=== PATIENT | female | born 1980 ===

== ENCOUNTER 2019-05-17 14:49 | Observation (INO) | payer MEDICAID ==
[2019-05-17] MEDS: Lactated Ringers 1,000 ML IV SCH ×2 (15:05→20:24)
[2019-05-17] MEDS ORDERED: Sodium Chloride 0.9% 10 ML Syringe FLUSH PRN (15:06)
--- NOTE | 2019-05-17 16:33 | US ---
EXAMINATION: OB Ltd 1 or More Fetus SEX: Female AGE: 39 years CLINICAL HISTORY: 39-year-old high risk, PREECLAMPTIC, "gravid" 3 para 1 female with ABDOMINAL PAIN. EDC 14 June 2019. INTERPRETATION: 1. Midline uterus enlarged with a clearly demonstrated single live ( heart rate 136 bpm) intrauterine gestation longitudinal lie and cephalic presentation. 2. Mature (calcifications) thin placenta located up over the fundus of the uterus clearly away from the internal cervical os. 3. Low normal volume amniotic fluid (RACHEL 8 cm). 4. Maximum biophysical profile score 8 of a possible 8 reflecting summation score 2 each for the sonographic parameters breathing movement, motion, tone and amniotic fluid volume (score 2 also reported for the clinical nonstress test). 5. measurements: BPD 8.8 cm (35 weeks 4 days). HC 32.35 cm (36 weeks 5 days). Before meals 30.92 cm (35 weeks). FL 6.7 cm (34 weeks 4 days. 6. Average ultrasound age (AUA) 35 weeks 4 days. Estimated weight 2569 g (5 lbs. 11 oz.). CONCLUSION: Single live 35 week 4 day, third trimester intrauterine gestation cephalic presentation. Fundal placenta. Biophysical profile score 10 of 10.
[2019-05-17] MEDS ORDERED: Calcium Carbonate 500 MG Tab.Chew PO ONE (16:39)
[2019-05-17] MEDS ORDERED: Acetaminophen 325 MG Tab PO PRN (18:12)
[2019-05-17] MEDS ORDERED: Betamethasone Acetate/Betamethasone Sod Phosphate 30 MG/5 ML MDV IM SCH (18:15)
[2019-05-17] MEDS ORDERED: hydrOXYzine HCl 25 MG Tab PO PRN (18:41)
[2019-05-17] MEDS: Calcium Carbonate 500 MG Tab.Chew PO PRN (19:57)
--- NOTE | 2019-05-17 23:37 | HP ---
REASON FOR ADMISSION: Preeclampsia in a patient. HISTORY OF PRESENT ILLNESS: A 39-year-old , G3, P1-0-1-1, at 34- 5/7 weeks' gestation, who presented by ambulance to Labor and Delivery today with complaints of vomiting and abdominal discomfort. She was writhing around on admission. She is a poor historian. She reports that she had an episode of emesis. She denied diarrhea. The baby had been not as active; in fact, she could not remember if the baby had been moving. She denied having contractions. She denied vaginal bleeding. She could not remember any fluid leakage. She was unsure if she was having contractions. INFORMATION: The patient is from [place], [place], and has been following with Dr. Sanders; however, she has had 2, or possibly 3, visits. She had minimal care and late care and has been noncompliant. We are unable to get her records, though we did get a few of her records finally, and those have been reviewed. Advanced maternal age; late care; noncompliance; gestational diabetes, diet controlled, though she has not been doing any monitoring at home; maternal anemia with a hemoglobin of 8.8 in March; and known heart murmur, though she had a normal Holter and EKG done, though she missed her echocardiogram and Cardiology appointment. PAST OBSTETRICAL HISTORY: #1, 2008, spontaneous AB at 5 weeks. #2, 09/23/2010, spontaneous vaginal delivery at 35 weeks' gestation, 5- pound 4-ounce/2381 g female with an epidural at [facility] in [place]. #3, her current . CURRENT MEDICATIONS PRESCRIBED: 1. vitamin. 2. Iron supplement. 3. MDI albuterol inhaler. (The patient reports she is not currently taking any of these medications). PAST MEDICAL HISTORY: Includes reactive airway disease. FAMILY HISTORY: Positive for diabetes in her mother. SOCIAL HISTORY: Single, female. An 8-year-old daughter named Carol. Mother is here with her today. The patient reports she is here for a . She denies any substance use. She does admit to smoking. REVIEW OF SYSTEMS: Vomiting is noted. She denies any diarrhea. Her system review is otherwise unreliable. She denies any chest pain. She has had some coughing. Her abdominal discomfort as noted. She denies any urinary symptoms. She denies any headaches or visual changes. She denies any increased swelling. She denies any history of preeclampsia. She denies any change in her urine volume. IMMUNIZATIONS: Include flu shot on 04/01/2019 and Tdap on 05/01/2019. PHYSICAL EXAMINATION: General: As noted, the patient is lying in bed and thrashing around at times and other times is sleeping and resistant to answering questions. She does seem sensitive to noises at times and covers her ears intermittently. Vital Signs: Pressures on arrival are noted to be elevated. Systolics during her monitoring are in the 140 to 165 range, and she has not had any systolic pressures less than 140. Diastolics are in the high 70s to 90 range. She is afebrile. Pulse is normal. Her heart rate is in the 60 to 70s and appears regular. She is 180 pounds and 5 feet 7 inches tall. Respiratory rate 16. HEENT: Appears grossly negative. Lungs: Slight end-expiratory wheeze on her down-lying lung that appears to clear with a cough. No respiratory distress. Heart: I do not hear a significant murmur when she is lying on her back today. There is a slight flow murmur when she is moving around in bed, though it may be related to her . Abdomen: Near-term size and appears soft and nontender. Liver does not appear enlarged and is nontender. Her abdomen does not appear to have any petechiae, no rash. The baby appears to be in a vertex presentation by Ced's maneuvers. Pelvis: Exam shows the cervix very posterior, high, at the 5 o'clock position, 1 cm/fingertip dilated, softening slightly, difficult to examine due to patient cooperation, though appears to be just slightly or possibly 25% effaced, though it is difficult to tell. Appears intact and no sign of bleeding or fluid leakage. Extremities: She has no significant pitting edema, perhaps just a trace of brawny edema. Neurologic: There are no focal neurologic deficits. Her speech is somewhat pressured at times, and she does go off in tangents. LABORATORY WORK: Here shows a protein-creatinine ratio of 0.36. Urine with 1+ protein and specific gravity 1.020. White count 20.1, hemoglobin 12.3, and platelet count 236. BUN 9 and creatinine 1.0. Uric acid 8.7. AST 52 and ALT 33. LDH 112. Urine drug screen is negative. Tramadol is pending. Nonstress test is reactive, not showing any significant decelerations. Accelerations are present, and she is not having any significant contractions. The baseline is registering in the 110 to 120 range. Ultrasound was showing a single live intrauterine ; heart rate 136 at that time; cephalic presentation as noted; mature calcified thin placenta, clear of the cervical os; RACHEL of 8, in the low normal range; average gestational age measuring 35 weeks 4 days, which is consistent with her gestational age. Biophysical profile score is 10/10. Review of some of her notes that have been received show GC and chlamydia done were negative. Group B strep was not present. Her panel was not found. Glucose on the way in in the ambulance was 116. IMPRESSION: 1. High-risk , 39-year-old , G3, P1-0-1-1, at 34 weeks 5 days by partial obstetrical records, with preeclampsia. 2. Late care, minimal care, and noncompliance. 3. Advanced maternal age. 4. Gestational diabetes, diet controlled, with no monitoring at home. 5. Mid-trimester anemia, which appears resolved. 6. History of a heart murmur with noncompliance with followup. 7. History of delivery at 35 weeks. PLAN: This patient will be admitted for overnight observation. We will start a 24-hour urine collection for protein and creatinine. We will repeat her labs tomorrow and suspect that with some IV hydration and rest they may improve. We will monitor her blood pressures. We will administer a betamethasone course, especially considering her history of prior delivery. We will continue with monitoring. We will do glucose monitoring 2 hours after each meal and fasting. We will monitor her lung status with her history of reactive airway disease. We will monitor her cardiac status due to the history of a new onset of a heart murmur during her . We will attempt to get the remainder of her records, and if unable to, we will consider drawing some labs. I have touched base with Dr. Farooq, OB ammonium nitrate crystallizer in [place], in case her status deteriorates and we end up needing to transfer her, so that she is aware of the case. I have reviewed this with the patient and her mother, and all their questions were answered. We will keep her at light activity and advance her diet tonight as tolerated unless her condition deteriorates. Further management pending her clinical course. Staff has been updated regarding her plan and care. [facility] /[id number]
[2019-05-17] MEDS ORDERED: hydrOXYzine HCl 25 MG Tab PO STA (23:49)
[2019-05-18] MEDS ORDERED: Labetalol 100 MG Tab PO ONE (01:13)
[2019-05-18] MEDS ORDERED: Magnesium Sulfate/Water 100 ML IV ONE (02:45)
[2019-05-18] MEDS ORDERED: Magnesium Sulfate/Water 20 GM/500 ML BAG IV SCH (03:00)
--- NOTE | 2019-05-18 03:04 | PCM.SN ---
- Free Text/Narrative Note: DOS: 05-18-2019 Michelle is 39yo NA @ 34w5d who was admitted earlier today with pre- eclampsia and high risk pregnacy for observation. she has continued to have increasing BP readings, not responding to labetalol, and now has diastolics consistently above 90, with her systolics consistently above 170. She has also started having contractions on the monitor, and continues to have persistent abdominal discomfort throughout the upper abdomen, and into the back. She has had vomiting X 2, no diarrhea. 600cc out for her 24 hour urine collection in 9 hours. feels warm to the touch @ 99.1 temp right now. cervix is soft, but remains high, posterior, 1cm/fingertip can get through to head. presenting part lower. status remains stable/unchanged. With her Hx of prior delivery at 35 weeks, and continuing sx of possible evolving pre-eclampsia, she will need to be transferred to a higher level of care so that she has NICU, neonatology available if she goes on to PLT and delivery, or if her sx develop into full-blown pre-eclampsia or eclampsia. Discussed with patient. She wishes to go to . Have discussed with Dr. Buck, who graciously accepts care. will transfer by ambulance to [facility]. Will load with Mg. will continue her 24 hour urine collection en route. will send records that are available. All questions answered for Michelle. see dictation for more details. [facility]
[2019-05-18] MEDS: Calcium Carbonate 500 MG Tab.Chew PO PRN (03:49)
--- NOTE | 2019-05-18 04:01 | DISCH ---
DATE OF DISCHARGE/TRANSFER: 05/18/2019 FINAL DIAGNOSES: 1. High-risk , 39-year-old G3, P1-0-1-1 at 34 weeks 6 days with preeclampsia. 2. Late care, minimal care with noncompliance. 3. Advanced maternal age. 4. Gestational diabetes with no monitoring at home. 5. History of second trimester anemia which apparently is resolved. 6. Heart murmur with noncompliance with followup. 7. History of prior delivery at 35 weeks. 8. Evolving preeclampsia symptoms and increasing contractions requiring transfer to higher level of care. HISTORY OF PRESENT ILLNESS: This 39-year-old G3, P1-0-1-1 at 34 and 5/7-week gestation, arrived by ambulance and was subsequently evaluated and admitted for observation on labor and delivery after complaints of vomiting and abdominal discomfort at approximately 34 and 5/7-week gestation by our best estimation, per her history, and partial OB records obtained from [facility]. She is a poor historian. Had vomiting and abdominal discomfort. Reports the baby had not been as active. She denied any vaginal fluid leakage or bleeding. She is not having any contractions on admission. High-risk patient with a history of a prior delivery at 35 weeks, anemia with a hemoglobin of 8.8 six weeks ago, known heart murmur partially evaluated, known gestational diabetes so she has not been monitoring at home, minimal care, unable to obtain her medical records today. Please see her admission H and P for further details. On examination, her systolic blood pressures were elevated on arrival, though her diastolics were within normal limits. Her vitals were otherwise unremarkable. She had some mild tenderness in the right upper quadrant which did not appear clinically significant on admission. Abdomen appeared term size and the baby appeared in a vertex presentation by Ced's maneuvers. Her cervix was posterior, high at the 5 o'clock position, 1 cm dilated, and softening. No evidence of fluid leakage or bleeding. Group B strep swab had been obtained by us during her hospitalization. She had just a trace of edema. Also, had evidence of prior skin grafts. LABORATORY DATA: Lab work showed an elevated protein/creatinine ratio of 0.36, urine was 1+ protein, but a normal specific gravity of 1.020. White count elevated at 20.1, but hemoglobin of 12.3 and platelet count 236. BUN 9, creatinine 1.0, uric acid 8.7, AST elevated at 52 with an ALT of 33, LDH 112. Urine drug screen was found to be negative. Tramadol is pending. status was reassuring. Ultrasound was done which confirmed cephalic presentation. RACHEL was 8. Biophysical profile 02/21. The patient was subsequently admitted for evaluation, monitoring of her blood pressure, IV fluid, 24-hour urine collection with plans to repeat her labs for preeclampsia, monitor her clinical status, follow her blood sugars closely, and evaluate her clinical picture. However, during the night, her blood pressures continued to increase and her diastolics are now persistently above 90 and her systolics up into the 170s. They did not respond to a dose of labetalol and she began to have increasing abdominal discomfort in her back. She had vomiting, but no diarrhea. She also is developing contractions. Her cervix remained unchanged. However, with her picture of increasing contractions and possible evolving preeclampsia, it was felt that she would be best served being at a higher level of care, where if she went on to active labor and delivered, she would have services of neonatology and NICU, especially considering her history of previous delivery. Also, with the possible evolving preeclampsia, she would have [employer] services available. This was discussed with Dr. Buck at [facility] who accepted care. She will be transferred by ambulance. She has received betamethasone already and will receive magnesium for preeclampsia and neuro protection. She will go by ambulance and will continue her 24-hour urine collection in case they wish to pursue that testing at transfer site. Further management pending her clinical course and [employer] management. CONDITION AT TRANSFER: Stable. [facility] /[id number]
== END 2019-05-18 03:45 ==
LOC: DL.OBCHECK 14:49 → DL.OB 18:39
PROVIDERS: ADMIT Family Medicine; ATTEND Family Medicine
DX: O14.93 Unspecified pre-eclampsia, third trimester (principal); O09.523 Supervision of elderly multigravida, third trimester; O24.410 Gestational diabetes mellitus in pregnancy, diet controlled; O99.013 Anemia complicating pregnancy, third trimester; O09.213 Supervision of pregnancy with history of pre-term labor, third trimester; Z3A.34 34 weeks gestation of pregnancy
CPT/HCPCS: 36415; 51702; 76815; 76819; 80305; 80307; 81003; 82565; 82570; 82962; 83615; 84156; 84450; 84460; 84520; 84550; 85027; 87081; A9270; J0702; J3475; J7120; 96361; 96365; 96372; G0378